=== PATIENT | male | born 1985 | race Caucasian/White ===

== ENCOUNTER 2019-05-20 21:15 | Emergency (ER) | payer MEDICAID ==
[~2019-05-20 21:15] MED LIST: ALLEGRA D 12 HO1 TER PO; ALPRAZOLAM0.25 MG PO; AMOXICILLIN 50500 MG PO; AMOXICILLIN 8751 TAB PO; EFFEXOR XR37.5 M2 PO; EFFEXOR XR75 M2 PO; FLONASE0.05 MG/AC NS; GOOD SENSE IBU200 MG PO; HYDROCORTISONE30 G1 TP; IBUPROFEN200 M1 PO; IBUPROFEN800 MG PO; NO HOME MEDICATIONS; NORCO 325 MG-51 TAB PO; PEN-VEE K500 MG PO; PREDNISONE20 MG PO; TESSALON PERLE200 MG PO; XANAX0.25 M1 PO; ZOFRAN ODT8 MG PO; ZYRTEC10 MG PO
[2019-05-20 22:08] VITALS: BP 135/79
== END 2019-05-20 22:08 | disposition home or self-care (01) ==
LOC: ED 21:15
DX: S62.397A Other fracture of fifth metacarpal bone, left hand, initial encounter for closed fracture (principal); F17.210 Nicotine dependence, cigarettes, uncomplicated; F41.9 Anxiety disorder, unspecified; W22.03XA Walked into furniture, initial encounter; Y92.000 Kitchen of unspecified non-institutional (private) residence as the place of occurrence of the external cause

== ENCOUNTER 2019-09-09 19:20 | Emergency (ER) | payer MEDICAID ==
[~2019-09-09] VITALS: Ht 182.9 cm; Wt 84.5 kg
[2019-09-09] MEDS ORDERED: CLINDAMYCIN 300MG PO (20:06)
[2019-09-09 21:10] VITALS: BP 128/80
== END 2019-09-09 20:42 | disposition home or self-care (01) ==
LOC: ED 19:20
DX: K04.7 Periapical abscess without sinus (principal); F17.210 Nicotine dependence, cigarettes, uncomplicated

== ENCOUNTER 2020-07-27 06:16 | Emergency (ER) | payer MEDICAID ==
[~2020-07-27 06:16] MED LIST changes: +CLINDAMYCIN 300MG PO
[2020-07-27 06:22] VITALS: BP 144/91
[2020-07-27] MEDS ORDERED: ZOLOFT 50MG50 MG PO (06:26)
[2020-07-27] MEDS ORDERED: ZOLOFT 100MG100 MG PO (08:03)
== END 2020-07-27 08:08 | disposition home or self-care (01) ==
LOC: ED 06:16
DX: F32.9 Major depressive disorder, single episode, unspecified (principal); F41.9 Anxiety disorder, unspecified